=== PATIENT | female | born 1970 ===

== ENCOUNTER 2018-06-30 07:23 | Day surgery (SDC) | payer OTHER ==
[2018-06-30] MEDS ORDERED: Lactated Ringer's 500 ML IV ONE (09:05)
--- NOTE | 2018-06-30 09:08 | CP.SDSHP ---
Same Day Surgery H & P - History Proposed Procedure: EGD Pre-Op Diagnosis: SEE NOTES - Previous Medical/Surgical History Cardiac: Hypertension Misc: Other Pain: 4.Moderate Pain - Allergies Allergies: Allergies No Known Allergies Allergy (Verified 06/30/18 08:04) - Physical Exam General Appearance: N Vital Signs: Vital Signs 06/30/18 08:00 Temperature 97.8 F Pulse Rate 80 Respiratory 20 Rate Blood Pressure 158/90 H O2 Sat by Pulse 97 Oximetry Mental Status: Alert & Oriented x3 Neuro: WNL Heart: Other Lungs: WNL GI: Other - {Optional Preform as Required} Breast: WNL Abdomen: Other Rectal: Other Integument: WNL : WNL Ortho: WNL ENT: WNL - Impression Pt. Evaluated Today:Candidate for Anesthesia & Procedure: Yes - Date & Time Time: 09:07 Short Stay Discharge - Short Stay Discharge Admitting Diagnosis/Reason for Visit: DYSPEPSIA Disposition: HOME/ ROUTINE
[2018-06-30] MEDS ORDERED: Propofol 10 mg/ml Inj (20 ML) ONE ×2 (09:19→09:26)
[2018-06-30] MEDS ORDERED: Lidocaine Hydrochloride 5 ML INJ ONE (09:20)
[2018-06-30] MEDS ORDERED: Belladonna-Phenobarbital PO ONE (09:40)
[2018-06-30] MEDS ORDERED: cefTRIAXone IV 1 gm in Dextros 50 ML IVPB ONE (10:15)
[2018-06-30 10:26] VITALS: PULSE 78
[2018-06-30 10:40] VITALS: BP 127/84; RESP 19; TEMP 98.1; O2SAT 98
== END 2018-06-30 10:37 | disposition home or self-care (01) ==
LOC: C.ENDO 07:23
PROVIDERS: ATTEND Specialist
DX: K21.0 Gastro-esophageal reflux disease with esophagitis (principal); K44.9 Diaphragmatic hernia without obstruction or gangrene; K29.50 Unspecified chronic gastritis without bleeding; K30 Functional dyspepsia; R10.13 Epigastric pain; I10 Essential (primary) hypertension
CPT/HCPCS: 43239; 84703; 88305; 88342; J0696; J2704; J7120

== ENCOUNTER 2018-07-05 08:50 | Day surgery (SDC) | payer OTHER ==
[2018-07-04 09:52] VITALS: BMI 32.5
[2018-07-05] MEDS ORDERED: Lactated Ringer's 1,000 ML IV ONE (12:36)
--- NOTE | 2018-07-05 12:39 | CP.SDSHP ---
Same Day Surgery H & P - History Proposed Procedure: COLONSCOPY Pre-Op Diagnosis: SEE NOTES - Previous Medical/Surgical History Cardiac: Hypertension - Allergies Allergies: Allergies No Known Allergies Allergy (Verified 07/05/18 09:39) - Physical Exam General Appearance: N Vital Signs: Vital Signs 07/05/18 07/05/18 09:47 09:57 Temperature 97.8 F Pulse Rate 80 80 Respiratory 20 Rate Blood Pressure 131/93 H O2 Sat by Pulse 97 Oximetry Neuro: WNL Heart: Other Lungs: WNL GI: WNL - {Optional Preform as Required} Breast: WNL Abdomen: Other Rectal: Other Integument: WNL : WNL Ortho: WNL ENT: WNL - Impression Pt. Evaluated Today:Candidate for Anesthesia & Procedure: Yes - Date & Time Time: 12:38 Short Stay Discharge - Short Stay Discharge Admitting Diagnosis/Reason for Visit: SCREENING Disposition: HOME/ ROUTINE
[2018-07-05] MEDS ORDERED: Propofol 10 mg/ml Inj (20 ML) ONE (12:42)
[2018-07-05] MEDS ORDERED: Midazolam 2 MG/2 ML VIAL ONE (12:42)
[2018-07-05] MEDS ORDERED: Belladonna-Phenobarbital PO STA (12:54)
[2018-07-05 13:11] VITALS: TEMP 97.9
[2018-07-05 13:19] VITALS: O2SAT 98
[2018-07-05 13:31] VITALS: RESP 18
[2018-07-05 13:51] VITALS: BP 124/75; PULSE 81
== END 2018-07-05 13:43 | disposition home or self-care (01) ==
LOC: C.ENDO 08:50
PROVIDERS: ATTEND Specialist
DX: Z12.11 Encounter for screening for malignant neoplasm of colon (principal); K58.9 Irritable bowel syndrome, unspecified; K52.9 Noninfective gastroenteritis and colitis, unspecified; K64.8 Other hemorrhoids; K64.4 Residual hemorrhoidal skin tags
CPT/HCPCS: 45380; 84703; 88305; J2704; J7120